=== PATIENT | male | born 1995 | race Caucasian/White ===

== ENCOUNTER 2017-10-27 06:40 | Emergency (ER) | payer SELFPAY ==
[2017-10-27 06:55] VITALS: BP 134/78
[2017-10-27] MEDS ORDERED: NORMAL SALINE 1000 ML 1,000 ML IV ONE (07:35)
[2017-10-27] MEDS ORDERED: LIDOCAINE 2% VISCOUS SOLN 20 ML UDCUP PO ONE (07:36)
[2017-10-27] MEDS ORDERED: MAG HYDROX/AL HYDROX/SIMETH SUSP 30 ML UDCUP PO ONE (07:36)
[2017-10-27 07:37] LABS: ABSOLUTE BASOPHILS # (AUTO) 0.1 10^3/uL (0.0-0.2); ABSOLUTE EOSINOPHILS # (AUTO) 0.2 10^3/uL (0.0-0.6); ABSOLUTE LYMPHOCYTES (AUTO) 2.8 10^3/uL (0.5-4.7); ABSOLUTE MONOCYTES (AUTO) 0.9 10^3/uL (0.1-1.4); ABSOLUTE NEUT (AUTO) 5.1 10^3/uL (1.7-8.2); EOSINOPHILS % (AUTO) 1.7 % (0-6); HEMATOCRIT 48.7 % (37.9-51.0); HEMOGLOBIN 16.9 g/dL (13.5-17.0); LYMPHOCYTES % (AUTO) 31.1 % (13-45); MEAN CORPUSCULAR HEMOGLOBIN 28.9 pg (27.0-33.4); MEAN CORPUSCULAR HGB CONC 34.7 g/dL (32.0-36.0); MEAN CORPUSCULAR VOLUME 83 fl (80-97); PLATELET COUNT 356 10^3/uL (150-450); RED BLOOD COUNT 5.86 10^6/uL (4.35-5.55); RED CELL DISTRIBUTION WIDTH 13.8 % (11.5-14.0); SEGMENTED NEUTROPHILS % (AUTO) 56.2 % (42-78); TOTAL CELLS COUNTED % (AUTO) 100 %
[2017-10-27 07:52] LABS: ALANINE AMINOTRANSFERASE 81 U/L (21-72); ALBUMIN 4.3 g/dL (3.5-5.0); ALKALINE PHOSPHATASE 81 U/L (38-126); ANION GAP 15 (5-19); ASPARTATE AMINO TRANSFERASE 51 U/L (17-59); BILIRUBIN,DIRECT 0.4 mg/dL (0.0-0.4); BILIRUBIN,TOTAL 0.4 mg/dL (0.2-1.3); BLOOD UREA NITROGEN 11 mg/dL (7-20); CALCIUM 9.8 mg/dL (8.4-10.2); CARBON DIOXIDE 26 mmol/L (22-30); CHLORIDE 105 mmol/L (98-107); CREATINE KINASE 221 U/L (55-170); GLUCOSE 79 mg/dL (75-110); LIPASE 31.1 U/L (23-300); POTASSIUM 4.5 mmol/L (3.6-5.0); TOTAL PROTEIN 7.4 g/dL (6.3-8.2)
[2017-10-27 08:01] LABS: CREATINE KINASE MB 1.32 ng/mL (<4.55)
[2017-10-27 08:04] LABS: TROPONIN I < 0.012 ng/mL
[2017-10-27 09:26] LABS: APPEARANCE,URINE CLEAR; BILIRUBIN,URINE NEGATIVE (NEGATIVE); COLOR,URINE YELLOW; GLUCOSE, URINE NEGATIVE (NEGATIVE); KETONES,URINE NEGATIVE (NEGATIVE); LEUKOCYTE ESTERASE,URINE NEGATIVE (NEGATIVE); NITRITE,URINE NEGATIVE (NEGATIVE); PROTEIN,URINE NEGATIVE (NEGATIVE); URINE SPECIFIC GRAVITY 1.026; UROBILINOGEN,URINE NEGATIVE mg/dL (<2.0)
--- NOTE | 2017-10-27 09:34 | EKG REPORT ---
SEVERITY:- BORDERLINE ECG - SINUS RHYTHM BORDERLINE LEFT AXIS DEVIATION BORDERLINE T ABNORMALITIES, INFERIOR LEADS CAN NOT R/O OLD INF DC : Confirmed by: Lalo Carter 27-Oct-2017 09:34:29
--- NOTE | 2017-10-27 09:41 | RADIOLOGY REPORT (SQ) ---
EXAM DESCRIPTION: U/S ABDOMEN LIMITED W/O DOP COMPLETED DATE/TIME: 10/27/2017 9:12 am REASON FOR STUDY: upper abd pain COMPARISON: 11/13/2015 TECHNIQUE: Dynamic and static grayscale images acquired of the abdomen and recorded on PACS. Additio nal selected color Doppler and spectral images recorded. LIMITATIONS: Morbid obesity, midline bowel gas FINDINGS: PANCREAS: Not visualized LIVER: Not well seen, echogenic from fatty infiltration. Grossly normal size. LIVER VASCULATURE: Normal directional flow of the main portal vein and hepatic veins. GALLBLADDER: No stones. Normal wall thickness. No pericholecystic fluid. ULTRASOUND-DETECTED DOMINGO'S SIGN: Negative. INTRAHEPATIC DUCTS AND COMMON DUCT: No intrahepatic biliary ductal dilatation. Common bile duct at t he cyrus hepatis not well seen. INFERIOR VENA CAVA: Not well seen AORTA: Not visualized RIGHT KIDNEY: Limited visualization. No gross right hydronephrosis PERITONEAL AND RIGHT PLEURAL SPACE: No ascites or effusions. OTHER: No other significant findings. IMPRESSION: Very limited study due to body habitus and bowel gas. No gross gallstones or biliary du ctal dilatation TECHNICAL DOCUMENTATION: JOB ID: [id number]- All Rights Reserved Reading location - IP/workstation name: [email or web address]
[2017-10-27] MEDS ORDERED: FENTANYL CITRATE INJ/PF 100 MCG/2 ML AMPUL IV ONE (10:03)
--- NOTE | 2017-10-27 10:05 | ER Document Report ---
ED GI/ - General Chief Complaint: Epigastric Pain Stated Complaint: CHEST PAIN Time Seen by Provider: 10/27/17 07:12 Mode of Arrival: Ambulatory Information source: Patient Notes: Patient presents complaining of right upper quadrant abdominal pain that radiates over to epigastric and left upper quadrant. Patient states that he has had the pain intermittently each day the past several months. Patient states that his pain today started around 540. Patient states he has been evaluated by GI doctors in the past and had scopes and was diagnosed with IBS. Patient states that he signed in reporting chest pain because he did not know how to describe the upper part of his abdomen. Patient denies any chest discomfort symptoms. TRAVEL OUTSIDE OF THE [place] IN LAST 30 DAYS: No - HPI Patient complains to provider of: Abdominal pain. No: Diarrhea Onset: This morning Timing/Duration: Gradual Quality of pain: Sharp Pain Level: 2 Location: Epigastric, LUQ, RUQ Associated symptoms: denies: Chest pain, Constipation, Diarrhea, Dysuria, Urinary hesitancy, Urinary frequency, Urinary retention, Urinary urgency, Vomiting Exacerbated by: Denies Relieved by: Denies Similar symptoms previously: Yes Recently seen / treated by doctor: No - Related Data Allergies/Adverse Reactions: No Known Allergies Allergy (Unverified 10/27/17 09:13) Past Medical History - General Information source: Patient - Social History Smoking Status: Never Smoker Chew tobacco use (# tins/day): No Frequency of alcohol use: None Drug Abuse: None 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 denies: Fever, Malaise, Recent illness EENT: No symptoms reported Cardiovascular: No symptoms reported. denies: Chest pain, Dizziness Respiratory: No symptoms reported. denies: Cough, Short of breath Gastrointestinal: Abdominal pain. denies: Diarrhea, Nausea, Vomiting, Poor appetite Genitourinary: No symptoms reported. denies: Dysuria, Flank pain Male Genitourinary: No symptoms reported Musculoskeletal: No symptoms reported. denies: Back pain Skin: No symptoms reported Hematologic/Lymphatic: No symptoms reported Neurological/Psychological: No symptoms reported Physical Exam - Vital signs Vitals: Temp Pulse Resp BP Pulse Ox 98 F 96 20 134/78 H 97 10/27/17 06:51 10/27/17 06:51 10/27/17 06:51 10/27/17 06:51 10/27/17 06:51 - General General appearance: Appears well, Alert In distress: None - HEENT Head: Normocephalic Eyes: Normal Conjunctiva: Normal Nasal: Normal Mouth/Lips: Normal Neck: Normal, Supple. No: Lymphadenopathy - Respiratory Respiratory status: No respiratory distress Chest status: Nontender Breath sounds: Normal Chest palpation: Normal - Cardiovascular Rhythm: Regular Heart sounds: S1 appreciated, S2 appreciated Murmur: No - Abdominal Inspection: Morbidly Obese Distension: No distension Bowel sounds: Normal Tenderness: Tender - Epigastric, right upper quadrant, left upper quandrant Organomegaly: No organomegaly - Back Back: Normal, Tender - Thoracic paraspinal tenderness. No: CVA tenderness, Vertebra tenderness - Extremities General upper extremity: Normal inspection, Normal strength General lower extremity: Normal inspection, Normal strength - Neurological Neuro grossly intact: Yes Cognition: Normal Simone Coma Scale Eye Opening: Spontaneous Simone Coma Scale Verbal: Oriented [place] Coma Scale Motor: Obeys Commands Simone Coma Scale Total: 15 - Psychological Associated symptoms: Normal affect, Normal mood - Skin Skin Temperature: Warm Skin Moisture: Dry Skin Color: Normal Course - Re-evaluation Re-evalutation: 10/27/17 10:04 Patient complains of continued abdominal pain, states GI cocktail did not help his symptoms at all. Patient without any chest pain symptoms at this time. Respirations unlabored. 10/27/17 12:06 Patient presents with abdominal pain without signs of peritonitis or other life- threatening or serious etiology. Patient appears stable for discharge and has been instructed to return immediately if the symptoms worsen in any way, or in 8 -12 hours if not improved for reevaluation. The patient has been instructed to return if the symptoms worsen or change in any way. The patient has atypical chest pain as the patient's chest pain is not suggestive of pulmonary embolus, cardiac ischemia, aortic dissection, or other serious etiology. Given the extremely low risk of these diagnoses for the test in evaluation for these possibilities does not appear to be indicated at this time. Patient has been instructed to return if the symptoms worsen or change in any way. - Vital Signs Vital signs: Temp Pulse Resp BP Pulse Ox 98 F 96 20 134/78 H 97 10/27/17 06:51 10/27/17 06:51 10/27/17 06:51 10/27/17 06:51 10/27/17 06:51 - Laboratory Result Diagrams: 10/27/17 07:10 10/27/17 07:10 Laboratory results interpreted by me: 10/27/17 10/27/17 07:10 07:10 RBC 5.86 H Sodium 146.0 H ALT 81 H Creatine Kinase 221 H 10/27/17 12:06 Labs- Entire Visit 10/27/17 10/27/17 10/27/17 07:10 07:10 07:10 WBC 9.0 RBC 5.86 H Hgb 16.9 Hct 48.7 MCV 83 MCH 28.9 MCHC 34.7 RDW 13.8 Plt Count 356 Seg Neutrophils % 56.2 Lymphocytes % 31.1 Monocytes % 10.0 Eosinophils % 1.7 Basophils % 1.0 Absolute Neutrophils 5.1 Absolute Lymphocytes 2.8 Absolute Monocytes 0.9 Absolute Eosinophils 0.2 Absolute Basophils 0.1 Sodium 146.0 H Potassium 4.5 Chloride 105 Carbon Dioxide 26 Anion Gap 15 BUN 11 Creatinine 0.91 Est GFR ( Amer) > 60 Est GFR (Non-Af Amer) > 60 Glucose 79 Calcium 9.8 Total Bilirubin 0.4 Direct Bilirubin 0.4 Neonat Total Bilirubin Not Reportable Neonat Direct Bilirubin Not Reportable Neonat Indirect Bili Not Reportable AST 51 ALT 81 H Alkaline Phosphatase 81 Creatine Kinase 221 H CK-MB (CK-2) 1.32 Troponin I < 0.012 Total Protein 7.4 Albumin 4.3 Lipase 31.1 Urine Color Urine Appearance Urine pH Ur Specific [place] Urine Protein Urine Glucose (UA) Urine Ketones Urine Blood Urine Nitrite Urine Bilirubin Urine Urobilinogen Ur Leukocyte Esterase Urine WBC (Auto) Urine RBC (Auto) U Hyaline Cast (Auto) Urine Mucus (Auto) Urine Ascorbic Acid 10/27/17 07:10 WBC RBC Hgb Hct MCV MCH MCHC RDW Plt Count Seg Neutrophils % Lymphocytes % Monocytes % Eosinophils % Basophils % Absolute Neutrophils Absolute Lymphocytes Absolute Monocytes Absolute Eosinophils Absolute Basophils Sodium Potassium Chloride Carbon Dioxide Anion Gap BUN Creatinine Est GFR ( Amer) Est GFR (Non-Af Amer) Glucose Calcium Total Bilirubin Direct Bilirubin Neonat Total Bilirubin Neonat Direct Bilirubin Neonat Indirect Bili AST ALT Alkaline Phosphatase Creatine Kinase CK-MB (CK-2) Troponin I Total Protein Albumin Lipase Urine Color YELLOW Urine Appearance CLEAR Urine pH 5.0 Ur Specific [place] 1.026 Urine Protein NEGATIVE Urine Glucose (UA) NEGATIVE Urine Ketones NEGATIVE Urine Blood NEGATIVE Urine Nitrite NEGATIVE Urine Bilirubin NEGATIVE Urine Urobilinogen NEGATIVE Ur Leukocyte Esterase NEGATIVE Urine WBC (Auto) 1 Urine RBC (Auto) 1 U Hyaline Cast (Auto) 1 Urine Mucus (Auto) OCC Urine Ascorbic Acid NEGATIVE - Diagnostic Test Radiology reviewed: Reports reviewed Discharge - Discharge Clinical Impression: Hx of irritable bowel syndrome Abdominal pain Qualifiers: Abdominal location: unspecified location Qualified Code(s): R10.9 - Unspecified abdominal pain Condition: Stable Disposition: HOME, SELF-CARE Instructions: Abdominal Pain ([facility]) Additional Instructions: Return immediately for any new or worsening symptoms Followup with your primary care provider, call tomorrow to make a followup appointment You may need an outpatient HIDA scan to further evaluate your abdominal pain symptoms. Follow-up with a primary doctor or a bisque cleaner for further evaluation. Call today for an appointment. Prescriptions: Omeprazole Magnesium [Prilosec Otc] 20 mg PO DAILY #15 tablet. Sucralfate [Carafate 1 gm Tablet] 1 gm PO ACHS #40 tablet Forms: Return to Work Referrals: GAUTAM DEAN MD [ACTIVE STAFF] - Follow up as needed RIGO NAILS MD [ACTIVE STAFF] - Follow up as needed [facility] [Provider Group] - Follow up as needed
--- NOTE | 2017-10-27 10:52 | RADIOLOGY REPORT (SQ) ---
EXAM DESCRIPTION: CHEST 2 VIEWS COMPLETED DATE/TIME: 10/27/2017 10:15 am REASON FOR STUDY: upper abd/back pain COMPARISON: None. EXAM PARAMETERS: NUMBER OF VIEWS: two views TECHNIQUE: Digital Frontal and Lateral radiographic views of the chest acquired. RADIATION DOSE: NA LIMITATIONS: none FINDINGS: LUNGS AND PLEURA: Mild elevation right hemidiaphragm. Lungs are free of focal infiltrates . No pleural effusion or pneumothorax. No worrisome pulmonary nodules. MEDIASTINUM AND HILAR STRUCTURES: No masses or contour abnormalities. HEART AND VASCULAR STRUCTURES: Heart normal size. No evidence for failure. BONES: No acute findings. HARDWARE: None in the chest. OTHER: No other significant finding. IMPRESSION: NO ACUTE RADIOGRAPHIC FINDING IN THE CHEST. TECHNICAL DOCUMENTATION: JOB ID: [id number] [employer]- All Rights Reserved Reading location - IP/workstation name: [email or web address]
== END 2017-10-27 12:31 | disposition home or self-care (01) ==
LOC: ER 06:40
DX: R10.13 Epigastric pain (principal); R10.11 Right upper quadrant pain; R10.12 Left upper quadrant pain; Z87.19 Personal history of other diseases of the digestive system
CPT/HCPCS: 93005; 99285; 96361; 96374; 36415; 82553; 82550; 83690; 85025; 80053; 81001; 84484; 71046; 76705; 93010; J3010; J3490; J7030

== ENCOUNTER 2018-12-02 16:25 | Emergency (ER) | payer OTHER ==
[2018-12-02] MEDS ORDERED: ACETAMINOPHEN 325 MG TABLET PO ONE (17:22)
--- NOTE | 2018-12-02 17:24 | ER Document Report ---
ED Medical Screen (RME) - General Chief Complaint: Sore Throat Stated Complaint: SORE THROAT Time Seen by Provider: 12/02/18 17:07 Notes: Patient is a 23-year-old male who presents the emergency department with a chief complaint of right sided throat pain. He states that he has had tonsil problems in the past and has had tonsil stones in the past. He states the right side seems more swollen than normal. He took some ibuprofen about 2 to 3 hours ago and has seen a little bit of improvement. He states that he has had a decreased appetite and has not really eat anything in the past 24 hours. States he has had some chills at home. Exam: Tender right side of neck. Uvula midline. I have greeted and performed a rapid initial assessment of this patient. A comprehensive ED assessment and evaluation of the patient, analysis of test r esults and completion of medical decision making process will be conducted by an additional ED providers. TRAVEL OUTSIDE OF THE [place] IN LAST 30 DAYS: No - Related Data Allergies/Adverse Reactions: No Known Allergies Allergy (Verified 12/02/18 16:27) Past Medical History Renal/ Medical History: Denies: Hx Peritoneal Dialysis GI Medical History: Reports: Hx Irritable Bowel, Hx Colonoscopy, Hx Endoscopy Physical Exam - Vital signs Vitals: Temp Pulse Resp BP Pulse Ox 98.3 F 107 H 20 141/93 H 95 12/02/18 16:31 12/02/18 16:31 12/02/18 16:31 12/02/18 16:31 12/02/18 16:31 Course - Vital Signs Vital signs: Temp Pulse Resp BP Pulse Ox 98.3 F 107 H 20 141/93 H 95 12/02/18 16:31 12/02/18 16:31 12/02/18 16:31 12/02/18 16:31 12/02/18 16:31
[2018-12-02 18:04] LABS: HEMATOCRIT 46.7 % (37.9-51.0); MEAN CORPUSCULAR HEMOGLOBIN 27.8 pg (27.0-33.4); MEAN CORPUSCULAR HGB CONC 34.1 g/dL (32.0-36.0); MEAN CORPUSCULAR VOLUME 82 fl (80-97); PLATELET COUNT 343 10^3/uL (150-450); RED BLOOD COUNT 5.74 10^6/uL (4.35-5.55); RED CELL DISTRIBUTION WIDTH 13.5 % (11.5-14.0); WHITE BLOOD COUNT 9.8 10^3/uL (4.0-10.5)
[2018-12-02 18:09] LABS: ALANINE AMINOTRANSFERASE 60 U/L (21-72); ALBUMIN 4.4 g/dL (3.5-5.0); ALKALINE PHOSPHATASE 88 U/L (38-126); ANION GAP 11 (5-19); ASPARTATE AMINO TRANSFERASE 30 U/L (17-59); BILIRUBIN,DIRECT 0.2 mg/dL (0.0-0.4); BILIRUBIN,TOTAL 0.5 mg/dL (0.2-1.3); BLOOD UREA NITROGEN 12 mg/dL (7-20); CALCIUM 9.3 mg/dL (8.4-10.2); CARBON DIOXIDE 27 mmol/L (22-30); CHLORIDE 99 mmol/L (98-107); GLUCOSE 85 mg/dL (75-110); POTASSIUM 4.5 mmol/L (3.6-5.0); TOTAL PROTEIN 7.5 g/dL (6.3-8.2)
[2018-12-02] MEDS ORDERED: DEXAMETHASONE CONC 1 MG/ML SOLN PO ONE (18:31)
--- NOTE | 2018-12-02 18:36 | ER Document Report ---
ED ENT - General Chief Complaint: Sore Throat Stated Complaint: SORE THROAT Time Seen by Provider: 12/02/18 17:07 TRAVEL OUTSIDE OF THE [place] IN LAST 30 DAYS: No - HPI Notes: Patient is a 23-year-old male that presents to the emergency department for chief complaint of sore throat. She reports 5 days of sore throat. He states his right tonsil and right side of his neck where the pain is mostly located. He states it is painful to swallow but he is not having any difficulty swallowing. He reports decreased appetite today. He has associated chills but denies fever. He denies cough and congestion, abdominal pain and difficulty breathing. Patient reports history of tonsilloliths and tonsillitis in the past. He denies sick contacts. He has intermittently taken ibuprofen at home which does give him some relief. Past Medical History: Negative Past Surgical History: Negative Social History: Lives with parents. Denies drugs alcohol and tobacco Family History: Reviewed and noncontributory for presenting illness Allergies: Reviewed, see documented allergy list. REVIEW OF SYSTEMS: CONSTITUTIONAL : No fever No chills No diaphoresis No recent illness EENT: No vision changes No congestion sore throat CARDIOVASCULAR: No chest pain No palpitations RESPIRATORY: No shortness of breath No cough No difficulty breathing GASTROINTESTINAL: No abdominal pain No nausea No vomiting No diarrhea GENITOURINARY: No dysuria No hematuria No difficulty urinating MUSCULOSKELETAL: No back pain No leg pain No arm pain SKIN: No rashes No lesions LYMPHATIC: No swollen, enlarged glands. NEUROLOGICAL: No lightheadedness No headache No weakness No paresthesias PSYCHIATRIC: No anxiety No depression PHYSICAL EXAMINATION: Vital signs reviewed, nursing noted reviewed. GENERAL: Well-appearing, well-nourished and in no acute distress. HEAD: Atraumatic, normocephalic. EYES: Eyes appear normal, extraocular movements intact, sclera anicteric, conjunctiva are normal. ENT: Bilateral tonsillar erythema without exudates or edema, uvula midline, nares patent. Mildly dry mucous membranes. NECK: Normal range of motion, supple right submental and anterior chain lymphadenopathy LUNGS: Breath sounds clear to auscultation bilaterally and equal. No wheezes rales or rhonchi. HEART: Tachycardic rate and regular rhythm without murmurs ABDOMEN: Soft, nontender, normoactive bowel sounds. No rebound, guarding, or rigidity. No masses appreciated. EXTREMITIES: Nontender, good range of motion, no pitting or edema. NEUROLOGICAL: No focal neurological deficits. Moves all extremities spontaneously Motor and sensory grossly intact on exam. PSYCH: Normal mood, normal affect. SKIN: Warm, Dry, normal turgor, no rashes or lesions noted on exposed skin - Related Data Allergies/Adverse Reactions: No Known Allergies Allergy (Verified 12/02/18 16:27) Past Medical History - Social History Smoking Status: Unknown if Ever Smoked Family History: Reviewed & Not Pertinent Patient has suicidal ideation: No Patient has homicidal ideation: No Renal/ Medical History: Denies: Hx Peritoneal Dialysis GI Medical History: Reports: Hx Irritable Bowel, Hx Colonoscopy, Hx Endoscopy Physical Exam - Vital signs Vitals: Temp Pulse Resp BP Pulse Ox 98.3 F 107 H 20 141/93 H 95 12/02/18 16:31 12/02/18 16:31 12/02/18 16:31 12/02/18 16:31 12/02/18 16:31 Course - Re-evaluation Re-evalutation: 12/02/18 18:35 Vitals reviewed. Nursing notes reviewed. Patient is well-appearing and in no acute distress. His tonsils are not edematous but do appear erythematous with out exudates. His rapid strep is negative. He has no unilateral tonsillar edema to suggest peritonsillar or retropharyngeal abscess. Patient has tender adenopathy on the right side of his neck. His symptoms are most consistent with a viral pharyngitis. The remainder of his blood work is unremarkable. Patient does have mildly dry mucous membranes and is mildly tachycardic. He is able to take p.o. fluids and was counseled on increasing his hydration. He states he has not had anything to drink today because of decreased appetite. He is in agreement with oral hydration. He will be given Decadron for symptomatic management. He will continue taking Tylenol and ibuprofen as needed for fever and chills. He will return for new or worsening symptoms. He is stable at discharge. Laboratory 12/02/18 12/02/18 12/02/18 17:17 17:33 17:33 WBC 9.8 RBC 5.74 H Hgb 16.0 Hct 46.7 MCV 82 MCH 27.8 MCHC 34.1 RDW 13.5 Plt Count 343 Sodium 136.7 L Potassium 4.5 Chloride 99 Carbon Dioxide 27 Anion Gap 11 BUN 12 Creatinine 0.93 Est GFR ( Amer) > 60 Est GFR (Non-Af Amer) > 60 Glucose 85 Calcium 9.3 Total Bilirubin 0.5 Direct Bilirubin 0.2 Neonat Total Bilirubin Not Reportable Neonat Direct Bilirubin Not Reportable Neonat Indirect Bili Not Reportable AST 30 ALT 60 Alkaline Phosphatase 88 Total Protein 7.5 Albumin 4.4 Group A Strep Rapid NEGATIVE - Vital Signs Vital signs: Temp Pulse Resp BP Pulse Ox 98.3 F 107 H 20 141/93 H 95 12/02/18 16:31 12/02/18 16:31 12/02/18 16:31 12/02/18 16:31 12/02/18 16:31 - Laboratory Result Diagrams: 12/02/18 17:33 12/02/18 17:33 Laboratory results interpreted by me: 12/02/18 12/02/18 17:33 17:33 RBC 5.74 H Sodium 136.7 L Discharge - Discharge Clinical Impression: Sore throat Condition: Stable Disposition: HOME, SELF-CARE Instructions: Sore Throat ([facility]) Additional Instructions: Please return to the emergency department if you have any worsening, or concern of your symptoms. Please return to the emergency department if you develop chest pain, difficulty breathing, severe abdominal pain, or ongoing vomiting. Please follow-up with your primary care physician in 2-3 days and any other recommended physicians. If prescribed, take all medications as directed. If you have any questions or concerns do not hesitate to return the emergency department for evaluation. Take Tylenol and ibuprofen at home for pain and fevers Referrals: [facility] [Provider Group] - Follow up as needed
[2018-12-02 18:47] VITALS: BP 125/76
== END 2018-12-02 18:45 | disposition home or self-care (01) ==
LOC: ER 16:25
DX: J02.9 Acute pharyngitis, unspecified (principal); R63.0 Anorexia; R68.83 Chills (without fever); R00.0 Tachycardia, unspecified; R59.0 Localized enlarged lymph nodes
CPT/HCPCS: 99283; 36415; 87070; 87880; 85027; 80053; J8540

== ENCOUNTER 2018-12-19 15:27 | Emergency (ER) | payer OTHER ==
[2018-12-19] MEDS ORDERED: NORMAL SALINE 1000 ML 1,000 ML IV ONE ×2 (17:51→19:17)
--- NOTE | 2018-12-19 18:09 | ER Document Report ---
HPI - HPI Time Seen by Provider: 12/19/18 17:49 Pain Level: 5 Notes: 23-year-old male presents the ED for evaluation of chafing to his inner thighs, which he refers to as his leg pain, has been going on for approximately 2 weeks becoming progressively worse due to increased emanating working outside as well as stating he felt very "hot" after working outside today in the humidity, which made him feel weak, patient has been waiting for triage for approximately an ho ur, and that time he states that he does feel "back to baseline". Patient states that the chafing has become progressively worse due to the heat. 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 denies fevers, chills, chest pain,palpitations, shortness of breath, dyspnea, nausea, vomiting, diarrhea, abdominal pain, hematuria,blurred vision, double vision, loss of vision, speech changes, LH, dizziness, syncope, headaches, wheezing, ST, URI, neck pain, weakness, bowel or bladder dysfunction, saddle anesthesia, numbness or tingling in bilateral upper or lower extremities equally, muscle paralysis, weakness in bilateral upper or lower extremities equally or rash. - DERM Skin Color: Myron Past Medical History - General Information source: Patient - Social History Smoking Status: Never Smoker Frequency of alcohol use: None Drug Abuse: None Family History: Reviewed & Not Pertinent Patient has suicidal ideation: No Patient has homicidal ideation: No Renal/ Medical History: Denies: Hx Peritoneal Dialysis GI Medical History: Reports: Hx Irritable Bowel, Hx Colonoscopy, Hx Endoscopy Vertical Provider Document - CONSTITUTIONAL Agree With Documented VS: Yes Exam Limitations: No Limitations General Appearance: WD/WN Notes: PHYSICAL EXAMINATION: GENERAL: Well-appearing, well-nourished and in no acute distress. HEAD: Atraumatic, normocephalic. EYES: Pupils equal round and reactive to light, extraocular movements intact, sclera anicteric, conjunctiva are normal. ENT: Nares patent, oropharynx clear without exudates. Moist mucous membranes. NECK: Normal range of motion, supple without lymphadenopathy LUNGS: Breath sounds clear to auscultation bilaterally and equal. No wheezes rales or rhonchi. HEART: Regular rate and rhythm without murmurs ABDOMEN: Soft, nontender, nondistended abdomen. No guarding, no rebound. No masses appreciated. Musculoskeletal: Normal range of motion, no pitting or edema. No cyanosis. NEUROLOGICAL: Cranial nerves grossly intact. Normal speech, normal gait. Normal sensory, motor exams PSYCH: Normal mood, normal affect. SKIN: Warm, Dry, normal turgor, no rashes or lesions noted. Bilateral inner thighs with chafing, slight warmth to touch, no open wounds or drainage. Distal pulses + bilateral lower extremities. - INFECTION CONTROL TRAVEL OUTSIDE OF THE [place] IN LAST 30 DAYS: No Course - Re-evaluation Re-evalutation: 12/19/18 18:52 23-year-old male afebrile vital stable no distress. Accu-Chek blood sugar 91. CBC CMP Chest x-ray negative for acute findings, no pneumonia or pneumothorax. No vascular congestion Noted to think bilateral inner thighs with some warmth to touch, will treat patient with antibiotic for cellulitis, advised to apply warm compress to site 20 minutes on 20 minutes off several times a day, discussed compression shorts, applying A&D ointment after infection has cleared. Work note given for patient to stay home and rest. Discussed with patient following up with primary care provider. Patient does not have any vasovagal response, vitals were normal range. Discussed the patient that he does need to stay hydrated throughout du ration of workday as well as when he is not working, stay away from caffeinated beverages or high salt foods. Father is at bedside, both patient and father agreed with plan of care. - Vital Signs Vital signs: Temp Pulse Resp BP Pulse Ox 98.3 F 106 H 16 138/80 H 94 12/19/18 16:10 12/19/18 16:10 12/19/18 16:10 12/19/18 16:10 12/19/18 16:10 Discharge - Discharge Clinical Impression: Cellulitis Qualifiers: Site of cellulitis: buttock Qualified Code(s): L03.317 - Cellulitis of buttock Heat exhaustion Qualifiers: Encounter type: initial encounter Qualified Code(s): T67.5XXA - Heat exhaustion, unspecified, initial encounter Condition: Stable Instructions: Cellulitis ([facility]) Prescriptions: Cephalexin Monohydrate [Keflex 500 mg Capsule] 500 mg PO BID #20 capsule Triamcinolone Acetonide 1 applic TP BID #80 oint..gm. Vits A and D/White Pet/Lanolin [A and D Ointment] 1 applic TP PRN PRN #1 tube PRN Reason: Forms: Return to Work Referrals: DONG NASH MD [ACTIVE STAFF] - Follow up as needed
--- NOTE | 2018-12-19 18:21 | RADIOLOGY REPORT (SQ) ---
EXAM DESCRIPTION: CHEST 2 VIEWS COMPLETED DATE/TIME: 12/19/2018 6:06 pm REASON FOR STUDY: weakness COMPARISON: 10/27/2017 EXAM PARAMETERS: NUMBER OF VIEWS: two views TECHNIQUE: Digital Frontal and Lateral radiographic views of the chest acquired. RADIATION DOSE: NA LIMITATIONS: none FINDINGS: LUNGS AND PLEURA: No opacities, masses or pneumothorax. No pleural effusion. MEDIASTINUM AND HILAR STRUCTURES: No masses or contour abnormalities. HEART AND VASCULAR STRUCTURES: Heart normal size. No evidence for failure. BONES: No acute findings. HARDWARE: None in the chest. OTHER: No other significant finding. IMPRESSION: NO ACUTE RADIOGRAPHIC FINDING IN THE CHEST. TECHNICAL DOCUMENTATION: JOB ID: [id number] [employer]- All Rights Reserved Reading location - IP/workstation name: [email or web address]
[2018-12-19 18:51] LABS: ABSOLUTE BASOPHILS # (AUTO) 0.1 10^3/uL (0.0-0.2); ABSOLUTE NEUT (AUTO) 8.5 10^3/uL (1.7-8.2); BASOPHILS % (AUTO) 0.6 % (0-2); EOSINOPHILS % (AUTO) 0.3 % (0-6); HEMATOCRIT 46.3 % (37.9-51.0); HEMOGLOBIN 15.6 g/dL (13.5-17.0); LYMPHOCYTES % (AUTO) 17.6 % (13-45); MEAN CORPUSCULAR HEMOGLOBIN 27.8 pg (27.0-33.4); MEAN CORPUSCULAR HGB CONC 33.8 g/dL (32.0-36.0); MEAN CORPUSCULAR VOLUME 82 fl (80-97); MONOCYTES % (AUTO) 8.4 % (3-13); PLATELET COUNT 328 10^3/uL (150-450); RED BLOOD COUNT 5.62 10^6/uL (4.35-5.55); RED CELL DISTRIBUTION WIDTH 13.9 % (11.5-14.0); SEGMENTED NEUTROPHILS % (AUTO) 73.1 % (42-78); TOTAL CELLS COUNTED % (AUTO) 100 %; WHITE BLOOD COUNT 11.6 10^3/uL (4.0-10.5)
[2018-12-19 19:06] LABS: ALBUMIN 4.9 g/dL (3.5-5.0); ALKALINE PHOSPHATASE 88 U/L (38-126); ANION GAP 12 (5-19); ASPARTATE AMINO TRANSFERASE 44 U/L (17-59); BILIRUBIN,DIRECT 0.4 mg/dL (0.0-0.4); BILIRUBIN,TOTAL 0.7 mg/dL (0.2-1.3); BLOOD UREA NITROGEN 14 mg/dL (7-20); CALCIUM 9.7 mg/dL (8.4-10.2); CARBON DIOXIDE 26 mmol/L (22-30); CHLORIDE 100 mmol/L (98-107); GLUCOSE 88 mg/dL (75-110); POTASSIUM 4.2 mmol/L (3.6-5.0)
--- NOTE | 2018-12-19 19:19 | ER Document Report ---
ED Medical Screen (RME) - General Chief Complaint: Heat Exposure Stated Complaint: LEG PAIN/NUMBNESS Time Seen by Provider: 12/19/18 17:49 Primary Care Provider: DONG NASH MD [ACTIVE STAFF] - Follow up as needed Mode of Arrival: Ambulatory Information source: Patient TRAVEL OUTSIDE OF THE [place] IN LAST 30 DAYS: No - HPI Notes: 12/19/18 19:14 23-year-old male presents the ED for evaluation of chafing to his inner thighs, which he refers to as his leg pain, has been going on for approximately 2 weeks becoming progressively worse due to increased emanating working outside as well as stating he felt very "hot" after working outside today in the humidity, which made him feel weak, patient has been waiting for triage for approximately an hour, and that time he states that he does feel "back to baseline". Patient states that the chafing has become progressively worse due to the heat. 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 denies fevers, chills, chest pain,palpitations, shortness of breath, dyspnea, nausea, vomiting, diarrhea, abdominal pain, hematuria,blurred vision, double vision, loss of vision, speech changes, LH, dizziness, syncope, headaches, wheezing, ST, URI, neck pain, weakness, bowel or bladder dysfunction, saddle anesthesia, numbness or tingling in bilateral upper or lower extremities equally, muscle paralysis, weakness in bilateral upper or lower extremities equally or ROS: Other than noted above, the 12 point review of systems was reviewed with the patient and were negative, all pertinent findings are included in the HPI. PHYSICAL EXAMINATION: Vital signs reviewed. GENERAL: Well-appearing, well-nourished and in no acute distress. HEAD: Atraumatic, normocephalic. NECK: Normal range of motion CV: Heart regular rate and rhythm LUNGS: No respiratory distress ABD: generalized abd pain Musculoskeletal: Normal range of motion NEUROLOGICAL: Normal speech SKIN: noted chaffing to bilateral thighs with warmth to touch, no open wounds or drainage. PSYCH: Normal mood, normal affect. MDM: Patient seen and examined for rapid initial assessment. Vital signs reviewed. A comprehensive ED assessment and evaluation of the patient, analysis of test results and completion of the medical decision making process will be conducted by additional ED providers. *Note is created using voice recognition software and may contain spelling, syntax or grammatical errors. - Related Data Allergies/Adverse Reactions: No Known Allergies Allergy (Verified 12/19/18 15:28) Past Medical History - Social History Frequency of alcohol use: None Drug Abuse: None Renal/ Medical History: Denies: Hx Peritoneal Dialysis GI Medical History: Reports: Hx Irritable Bowel, Hx Colonoscopy, Hx Endoscopy Physical Exam - Vital signs Vitals: Temp Pulse Resp BP Pulse Ox 98.3 F 106 H 16 138/80 H 94 12/19/18 16:10 12/19/18 16:10 12/19/18 16:10 12/19/18 16:10 12/19/18 16:10 Course - Vital Signs Vital signs: Temp Pulse Resp BP Pulse Ox 98.3 F 106 H 16 138/80 H 94 12/19/18 16:10 12/19/18 16:10 12/19/18 16:10 12/19/18 16:10 12/19/18 16:10 - Laboratory Result Diagrams: 12/19/18 18:28 12/19/18 18:28 Laboratory results interpreted by me: 12/19/18 12/19/18 18:28 18:28 WBC 11.6 H RBC 5.62 H Absolute Neutrophils 8.5 H Creatinine 1.30 H Doctor's Discharge - Discharge Prescriptions: Cephalexin Monohydrate [Keflex 500 mg Capsule] 500 mg PO BID #20 capsule Triamcinolone Acetonide 1 applic TP BID #80 oint..gm. Vits A and D/White Pet/Lanolin [A and D Ointment] 1 applic TP PRN PRN #1 tube PRN Reason:
[2018-12-19 23:44] LABS: APPEARANCE,URINE SLIGHTLY-CLOUDY; BILIRUBIN,URINE NEGATIVE (NEGATIVE); COLOR,URINE AMBER; GLUCOSE, URINE NEGATIVE (NEGATIVE); KETONES,URINE TRACE mg/dL (NEGATIVE); LEUKOCYTE ESTERASE,URINE NEGATIVE (NEGATIVE); NITRITE,URINE NEGATIVE (NEGATIVE); PROTEIN,URINE NEGATIVE (NEGATIVE); URINE SPECIFIC GRAVITY 1.026; UROBILINOGEN,URINE NEGATIVE mg/dL (<2.0)
--- NOTE | 2018-12-20 00:12 | ER Document Report ---
ED Heat Exposure - General Chief Complaint: Heat Exposure Stated Complaint: LEG PAIN/NUMBNESS Time Seen by Provider: 12/19/18 17:49 Mode of Arrival: Ambulatory Notes: RME NOTE: 23-year-old male presents the ED for evaluation of chafing to his inner thighs, which he refers to as his leg pain, has been going on for approximately 2 weeks becoming progressively worse due to increased emanating working outside as well as stating he felt very "hot" after working outside today in the humidity, which made him feel weak, patient has been waiting for triage for approximately an hour, and that time he states that he does feel "back to baseline". Patient states that the chafing has become progressively worse due to the heat. 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 denies fevers, chills, chest pain,palpitations, shortness of breath, dyspnea, nausea, vomiting, diarrhea, abdominal pain, hematuria,blurred vision, double vision, loss of vision, speech changes, LH, dizziness, syncope, headaches, wheezing, ST, URI, neck pain, weakness, bowel or bladder dysfunction, saddle anesthesia, numbness or tingling in bilateral upper or lower extremities equally, muscle paralysis, weakness in bilateral upper or lower extremities equally or. MY HPI: Same as above. Patient has already been treatment with fluid resuscitation in the emergency department. States he overall feels a lot better. Patient is concerned about getting time off of work as his rash will not be able to heal. TRAVEL OUTSIDE OF THE [place] IN LAST 30 DAYS: No - Related Data Allergies/Adverse Reactions: No Known Allergies Allergy (Verified 12/19/18 15:28) Past Medical History - General Information source: Patient - Social History Smoking Status: Never Smoker Frequency of alcohol use: None Drug Abuse: None Family History: Reviewed & Not Pertinent Patient has suicidal ideation: No Patient has homicidal ideation: No Renal/ Medical History: Denies: Hx Peritoneal Dialysis GI Medical History: Reports: Hx Irritable Bowel, Hx Colonoscopy, Hx Endoscopy Review of Systems - Review of Systems Constitutional: denies: Fever EENT: No symptoms reported Cardiovascular: No symptoms reported Respiratory: No symptoms reported Gastrointestinal: No symptoms reported Genitourinary: No symptoms reported Male Genitourinary: No symptoms reported Musculoskeletal: No symptoms reported Skin: See HPI Hematologic/Lymphatic: No symptoms reported Neurological/Psychological: No symptoms reported Physical Exam - Vital signs Vitals: Temp Pulse Resp BP Pulse Ox 98.3 F 106 H 16 138/80 H 94 12/19/18 16:10 12/19/18 16:10 12/19/18 16:10 12/19/18 16:10 12/19/18 16:10 - Notes Notes: GENERAL: Morbidly obese, alert, interacts well. No acute distress. HEAD: Normocephalic, atraumatic. EYES: Pupils equal, round, and reactive to light. Extraocular movements intact. ENT: Oral mucosa moist, tongue midline. NECK: Full range of motion. Supple. Trachea midline. LUNGS: Clear to auscultation bilaterally, no wheezes, rales, or rhonchi. No respiratory distress. HEART: Regular rate and rhythm. No murmur ABDOMEN: Soft, non-tender. Non-distended. Bowel sounds present in all 4 quadrants. EXTREMITIES: Moves all 4 extremities spontaneously. No edema, normal radial and dorsalis pedis pulses bilaterally. No cyanosis. BACK: no cervical, thoracic, lumbar midline tenderness. No saddle anesthesia, normal distal neurovascular exam. NEUROLOGICAL: Alert and oriented x3. Normal speech. cranial nerves II through XII grossly intact PSYCH: Normal affect, normal mood. SKIN: Warm, dry, normal turgor. Beefy red excoriated skin noted bilateral inner thighs. Course - Re-evaluation Re-evalutation: 12/20/18 00:14 Laboratory 12/19/18 12/19/18 12/19/18 18:16 18:28 18:28 WBC 11.6 H RBC 5.62 H Hgb 15.6 Hct 46.3 MCV 82 MCH 27.8 MCHC 33.8 RDW 13.9 Plt Count 328 Seg Neutrophils % 73.1 Lymphocytes % 17.6 Monocytes % 8.4 Eosinophils % 0.3 Basophils % 0.6 Absolute Neutrophils 8.5 H Absolute Lymphocytes 2.0 Absolute Monocytes 1.0 Absolute Eosinophils 0.0 Absolute Basophils 0.1 Sodium 137.9 Potassium 4.2 Chloride 100 Carbon Dioxide 26 Anion Gap 12 BUN 14 Creatinine 1.30 H Est GFR ( Amer) > 60 Est GFR (Non-Af Amer) > 60 Glucose 88 POC Glucose 92 Calcium 9.7 Total Bilirubin 0.7 Direct Bilirubin 0.4 Neonat Total Bilirubin Not Reportable Neonat Direct Bilirubin Not Reportable Neonat Indirect Bili Not Reportable AST 44 ALT 49 Alkaline Phosphatase 88 Creatine Kinase Total Protein 8.0 Albumin 4.9 Urine Color Urine Appearance Urine pH Ur Specific [place] Urine Protein Urine Glucose (UA) Urine Ketones Urine Blood Urine Nitrite Urine Bilirubin Urine Urobilinogen Ur Leukocyte Esterase Urine WBC (Auto) Urine RBC (Auto) U Hyaline Cast (Auto) Urine Mucus (Auto) Urine Ascorbic Acid 12/19/18 12/19/18 12/19/18 22:13 22:56 23:06 WBC RBC Hgb Hct MCV MCH MCHC RDW Plt Count Seg Neutrophils % Lymphocytes % Monocytes % Eosinophils % Basophils % Absolute Neutrophils Absolute Lymphocytes Absolute Monocytes Absolute Eosinophils Absolute Basophils Sodium Cancelled Potassium Cancelled Chloride Cancelled Carbon Dioxide Cancelled Anion Gap Cancelled BUN Cancelled Creatinine Cancelled Est GFR ( Amer) Cancelled Est GFR (Non-Af Amer) Cancelled Glucose Cancelled POC Glucose Calcium Cancelled Total Bilirubin Direct Bilirubin Neonat Total Bilirubin Neonat Direct Bilirubin Neonat Indirect Bili AST ALT Alkaline Phosphatase Creatine Kinase Cancelled 380 H Total Protein Albumin Urine Color [place] Urine Appearance SLIGHTLY-CLOUDY Urine pH 5.0 Ur Specific [place] 1.026 Urine Protein NEGATIVE Urine Glucose (UA) NEGATIVE Urine Ketones TRACE H Urine Blood NEGATIVE Urine Nitrite NEGATIVE Urine Bilirubin NEGATIVE Urine Urobilinogen NEGATIVE Ur Leukocyte Esterase NEGATIVE Urine WBC (Auto) 1 Urine RBC (Auto) 1 U Hyaline Cast (Auto) 5 Urine Mucus (Auto) MANY Urine Ascorbic Acid NEGATIVE Chest X-Ray 12/19/18 17:50 IMPRESSION: NO ACUTE RADIOGRAPHIC FINDING IN THE CHEST. Patient's labs show creatinine of 1.30 with a CK of 380. He has been treated wi th 2 L of normal saline solution in the emergency department. His urine shows trace ketones. Upon my examination patient states he is overall feeling a lot better. Patient is more concerned about the rash on his inner thighs. He is also concerned that his work will make him continue to go to work and not let the rash heal. Patient is voicing need for work note. I discussed at length with patient and family in the room that the patient needs to stay well-hydrated if he is going to be working outside in the heat. I also discussed with him at length his kidney function via labs and adverse outcome should he not stay well-hydrated. At this time will discharge with return precautions and follow-up recommendations. Verbal discharge instructions given a the bedside and opportunity for questions given. Medication warnings reviewed. Patient is in agreement with this plan and has verbalized understanding of return precautions and the need for primary care follow-up in the next 24-72 hours. This medical record was dictated with voice recognizing software. There may be grammatical, syntax errors that are unintended. 12/20/18 00:17 Michelle Jackson nurse practitioner has already provided the patient with A&E ointment prescription as well as triamcinolone. - Vital Signs Vital signs: Temp Pulse Resp BP Pulse Ox 98.3 F 106 H 16 138/80 H 94 12/19/18 16:10 12/19/18 16:10 12/19/18 16:10 12/19/18 16:10 12/19/18 16:10 - Laboratory Result Diagrams: 12/19/18 18:28 12/19/18 18:28 Laboratory results interpreted by me: 12/19/18 12/19/18 12/19/18 18:28 18:28 22:56 WBC 11.6 H RBC 5.62 H Absolute Neutrophils 8.5 H Creatinine 1.30 H Creatine Kinase 380 H Urine Ketones 12/19/18 23:06 WBC RBC Absolute Neutrophils Creatinine Creatine Kinase Urine Ketones TRACE H Discharge - Discharge Clinical Impression: Yeast dermatitis Heat exposure Qualifiers: Encounter type: initial encounter Qualified Code(s): T67.9XXA - Effect of heat and light, unspecified, initial encounter Condition: Stable Disposition: HOME, SELF-CARE Instructions: Heat Exhaustion ([facility]) Additional Instructions: As we discussed you have been seen and treated in the emergency department for heat exposure. You have been treated with fluids. Please make sure you are staying well-hydrated especially if you are working outside. Please also make sure you use prescription creams for the rash on her inner thighs. Please follow-up with a primary care provider in the next 24 to 48 hours. Please return to the emergency room for any further concerns. Forms: Return to Work
[2018-12-20 01:37] VITALS: BP 112/50
== END 2018-12-20 00:40 | disposition home or self-care (01) ==
LOC: ER 15:27
DX: T67.9XXA Effect of heat and light, unspecified, initial encounter (principal); X30.XXXA Exposure to excessive natural heat, initial encounter; Y93.89 Activity, other specified; Y99.0 Civilian activity done for income or pay; B37.2 Candidiasis of skin and nail; E66.01 Morbid (severe) obesity due to excess calories
CPT/HCPCS: 36415; 82962; 82550; 85025; 80053; 81001; 71046; J7030; 96360; 96361; 99284